=== PATIENT | male | born 1965 | race Caucasian/White ===

== ENCOUNTER 2021-12-29 13:00 | Oncology outpatient (recurring) (ONCR) | payer BC, SELFPAY ==
[2021-12-16 16:46] LABS: Erythrocyte Sedimentation Rate < 1 mm/hr (0-10)
[2021-12-16 16:50] LABS: Basophils # 0.1 10^3/uL (0.0-0.1); Basophils % 0.6 %; Eosinophils # 0.5 10^3/uL (0.0-0.8); Eosinophils % 4.5 %; Hematocrit 50.1 % (42.0-52.0); Hemoglobin 16.8 g/dL (11.7-16.6); Lymphocytes # 1.9 10^3/uL (0.8-4.8); Mean Corpuscular HGB Conc 33.5 g/dL (30.0-36.0); Mean Corpuscular Volume 86.5 fl (80-94); Mean Platelet Volume 9.9 fL (7.4-10.4); Monocytes # 1.3 10^3/uL (0.2-0.9); Monocytes % 12.8 %; Neutrophils # 6.23 10^3/uL (1.8-7.7); Neutrophils % 61.6 %; Nucleated Red Blood Cells % 0 %; Platelet Count 329 10^3/cmm (130-400); Red Blood Count 5.79 10^6/uL (4.1-5.3); Red Cell Distribution Width 12.9 % (12.1-15.1); White Blood Count 10.1 10^3/uL (4.0-10.0)
[2021-12-16 18:00] LABS: Alanine Aminotransferase 29 U/L (0-41); Albumin Level 4.5 g/dL (3.5-5.2); Alkaline Phosphatase 81 U/L (40-130); Anion Gap 15.2 (5-19); Aspartate Amino Transferase 24 U/L (0-40); Blood Urea Nitrogen 19 mg/dL (6-20); C Reactive Protein 5.6 mg/L (0.0-4.9); Calcium 9.3 mg/dL (8.5-10.5); Carbon Dioxide 26 mmol/L (22-29); Chloride 104 mmol/L (98-107); Ferritin 106 ng/mL (30-400); Globulin 2.5 g/dL (1.3-4.6); Glomerular Filtration Rate 69.5 mL/min (90-130); Glucose 72 mg/dL (65-115); Iron 98 ug/dL (59-158); Osmolality Calculated 293 mOsm/kg (285-295); Percent Saturation 30.8 % (20-50); Potassium 4.2 mmol/L (3.5-5.1); Sodium 141 mmol/L (136-145); Thyroid Stimulating Hormone 1.05 uIU/mL (0.27-4.20); Total Bilirubin 0.5 mg/dL (0.15-1.2); Total Iron Binding Capacity 318 mcg/dl; Unsaturated Iron Binding 220 ug/dL (112-347)
== END 2022-01-08 23:59 | disposition home or self-care (01) ==
PROVIDERS: Visit Provider Internal Medicine Medical Oncology
DX: E83.119 Hemochromatosis, unspecified (principal); R53.83 Other fatigue
CPT/HCPCS: 36415; 80053; 81256; 82728; 83540; 83550; 84443; 85025; 85651; 86140; 99195

== ENCOUNTER 2022-01-20 08:49 | Outpatient (CLI) | payer BC, SELFPAY ==
[2022-01-21 12:57] LABS: Lyme AB Screen <0.90 index
[2022-01-26 17:43] LABS: RMSF IGG NOT DETECTED; RMSF IGM NOT DETECTED
[2022-01-26 21:27] LABS: E. Chaffeensis AB IGG <1:64; E. Chaffeensis AB IGM <1:20
== END 2022-01-20 08:50 | disposition home or self-care (01) ==
LOC: LAB 08:52
PROVIDERS: Visit Provider Registered Nurse
DX: S30.862A Insect bite (nonvenomous) of penis, initial encounter (principal); W57.XXXA Bitten or stung by nonvenomous insect and other nonvenomous arthropods, initial encounter
CPT/HCPCS: 36415; 86618; 86666; 86757

== ENCOUNTER 2022-03-08 10:03 | Outpatient (CLI) | payer BC, SELFPAY ==
--- NOTE | 2022-03-08 10:38 | USCV_ITS ---
Alexis Mercado Age: 56 Gender: M : 1965 Exam Date: 03/08/2022 11:25 Ordering Phys: Elidia Horowitz Technologist: Eliazar Solis Exam Location: [facility] [place] Indication: HTN BP: 105 / 70 HR: 68 Rhythm: Sinus Technical Quality: Adequate MEASUREMENTS (Male / Female) Normal Values 2D ECHO LV Diastolic Diameter PLAX 3.8 cm 4.2 - 5.9 / 3.9 - 5.3 cm LV Systolic Diameter PLAX 2.3 cm IVS Diastolic Thickness 0.9 cm 0.6 - 1.0 / 0.6 - 0.9 cm IVS Systolic Thickness 0.9 cm LVPW Diastolic Thickness 1.0 cm 0.6 - 1.0 / 0.6 - 0.9 cm LVPW Systolic Thickness 1.1 cm LVOT Diameter 2.0 cm LV Ejection Fraction 2D Teich 70.4 % LV Ejection Fraction MOD 2C 60.9 % LV Ejection Fraction 2C AL 61.5 % LA Diameter 3.1 cm LA Width 3.4 cm LA Height 3.9 cm RA Width 2.6 cm RA Height 4.6 cm Aorta at Sinotubular Diameter 2.5 cm IVC Diameter 1.9 cm M-MODE Aortic Annulus Diameter 2.7 cm LA Ao Ratio MM 1.1 MV E Point Septal Separation 0.6 cm DOPPLER AV Peak Velocity 119.5 cm/s LVOT Peak Velocity 111.0 cm/s AV Area Cont Eq vti 3.1 cm squared AV Area Cont Eq pk 3.0 cm squared MV Peak Velocity 88.0 cm/s MV Area PHT 4.5 cm squared Mitral E to A Ratio 0.7 MV E' Velocity 32.5 cm/s Mitral E to MV E' Ratio 5.6 Mitral E to LV E' Lateral Ratio 4.7 Mitral E to LV E' Septal Ratio 6.9 TR Peak Velocity 142.3 cm/s TR Peak Gradient 8.1 mmHg TR Mean Velocity 106.3 cm/s TR Mean Gradient 4.8 mmHg TR Velocity Time Integral 29.2 cm Right Atrial Pressure 3.0 mmHg Pulmonary Artery Systolic Pressu 11.1 mmHg PV Peak Velocity 109.0 cm/s RV Acceleration Time 0.1 s RV Ejection Time 0.3 s RV AcT/ET 0.4 FINDINGS Left Ventricle Normal left ventricular size, systolic function and wall thickness, with no regional wall motion abnormalities. Left ventricular ejection fraction is estimated at 65 %. Normal diastolic function. Right Ventricle Normal right ventricular size and systolic function. Right ventricular systolic pressure 11.1 mmHg. Right Atrium Normal right atrial size. Left Atrium Normal left atrial size. Mitral Valve Structurally normal mitral valve. No mitral valve stenosis. Trace mitral valve regurgitation. Aortic Valve Structurally normal trileaflet aortic valve. No aortic valve stenosis. No aortic valve regurgitation. Tricuspid Valve Structurally normal tricuspid valve. No tricuspid valve stenosis. Trace tricuspid valve regurgitation. Pulmonic Valve Structurally normal pulmonic valve. No pulmonary valve stenosis. Trace pulmonary valve regurgitation. Pericardium No pericardial effusion. Aorta Normal size aortic root and proximal ascending aorta. IVC Normal IVC dimension with >50% respiratory change of the inferior vena cava. Normal IVC dimension with >50% respiratory change of the inferior vena cava. CONCLUSIONS 1. Normal left ventricular size, systolic function and wall thickness, with no regional wall motion abnormalities. Left ventricular ejection fraction is estimated at 65 %. Normal diastolic function. 2. No prior similar studies to compare. Vale Macias MD (Electronically Signed) Final Date: 11 March 2022 19:53 S
== END 2022-03-08 10:04 | disposition home or self-care (01) ==
PROVIDERS: PCP Registered Nurse; Visit Provider Registered Nurse
DX: I10 Essential (primary) hypertension (principal)
CPT/HCPCS: 93306

== ENCOUNTER 2022-04-13 11:28 | Outpatient (CLI) | payer BC, SELFPAY ==
[2022-04-13 12:29] LABS: Basophils # 0.1 10^3/uL (0.0-0.1); Basophils % 0.9 %; Eosinophils # 0.4 10^3/uL (0.0-0.8); Eosinophils % 4.4 %; Hematocrit 48.4 % (42.0-52.0); Hemoglobin 16.3 g/dL (11.7-16.6); Lymphocytes # 1.7 10^3/uL (0.8-4.8); Lymphocytes % 20.6 %; Mean Corpuscular HGB Conc 33.7 g/dL (30.0-36.0); Mean Corpuscular Volume 86.1 fl (80-94); Mean Platelet Volume 9.8 fL (7.4-10.4); Monocytes # 0.8 10^3/uL (0.2-0.9); Monocytes % 9.7 %; Neutrophils # 5.36 10^3/uL (1.8-7.7); Neutrophils % 63.3 %; Nucleated Red Blood Cells % 0 %; Platelet Count 336 10^3/cmm (130-400); Red Blood Count 5.62 10^6/uL (4.1-5.3); Red Cell Distribution Width 12.1 % (12.1-15.1); White Blood Count 8.5 10^3/uL (4.0-10.0)
[2022-04-13 12:53] LABS: Alanine Aminotransferase 41 U/L (0-41); Albumin Level 4.4 g/dL (3.5-5.2); Alkaline Phosphatase 72 U/L (40-130); Anion Gap 15.4 (5-19); Aspartate Amino Transferase 27 U/L (0-40); Blood Urea Nitrogen 16 mg/dL (6-20); Carbon Dioxide 27 mmol/L (22-29); Chloride 104 mmol/L (98-107); Ferritin 125 ng/mL (30-400); Globulin 2.8 g/dL (1.3-4.6); Glomerular Filtration Rate 87.6 mL/min (90-130); Glucose 92 mg/dL (65-115); Iron 126 ug/dL (59-158); Osmolality Calculated 295 mOsm/kg (285-295); Percent Saturation 39.1 % (20-50); Potassium 4.4 mmol/L (3.5-5.1); Sodium 142 mmol/L (136-145); Total Bilirubin 0.7 mg/dL (0.15-1.2); Total Iron Binding Capacity 322 mcg/dl; Total Protein 7.2 g/dL (6.6-8.7); Unsaturated Iron Binding 196 ug/dL (112-347)
== END 2022-04-13 11:29 | disposition home or self-care (01) ==
PROVIDERS: PCP Registered Nurse; Visit Provider Internal Medicine Medical Oncology
DX: E83.119 Hemochromatosis, unspecified (principal)
CPT/HCPCS: 36415; 80053; 82728; 83540; 83550; 85025

== ENCOUNTER 2022-05-27 07:59 | Oncology outpatient (recurring) (ONCR) | payer BC, SELFPAY ==
[2022-05-27 08:36] LABS: Basophils # 0.1 10^3/uL (0.0-0.1); Basophils % 0.9 %; Eosinophils # 0.4 10^3/uL (0.0-0.8); Eosinophils % 5.4 %; Hematocrit 44.1 % (42.0-52.0); Lymphocytes # 1.6 10^3/uL (0.8-4.8); Lymphocytes % 20.5 %; Mean Corpuscular Hemoglobin 28.4 pg (28.0-34.0); Mean Corpuscular Volume 83.4 fl (80-94); Mean Platelet Volume 9.7 fL (7.4-10.4); Monocytes # 0.8 10^3/uL (0.2-0.9); Monocytes % 10.6 %; Neutrophils # 4.85 10^3/uL (1.8-7.7); Nucleated Red Blood Cells % 0 %; Platelet Count 308 10^3/cmm (130-400); Red Blood Count 5.29 10^6/uL (4.1-5.3)
[2022-05-27 08:58] LABS: Alanine Aminotransferase 30 U/L (0-41); Albumin Level 4.4 g/dL (3.5-5.2); Alkaline Phosphatase 64 U/L (40-130); Anion Gap 12.8 (5-19); Aspartate Amino Transferase 28 U/L (0-40); Blood Urea Nitrogen 14 mg/dL (6-20); Calcium 9.4 mg/dL (8.5-10.5); Carbon Dioxide 27 mmol/L (22-29); Chloride 105 mmol/L (98-107); Ferritin 153 ng/mL (30-400); Globulin 2.1 g/dL (1.3-4.6); Glucose 108 mg/dL (65-115); Iron 108 ug/dL (59-158); Osmolality Calculated 293 mOsm/kg (285-295); Percent Saturation 34.8 % (20-50); Potassium 3.8 mmol/L (3.5-5.1); Sodium 141 mmol/L (136-145); Total Bilirubin 1.1 mg/dL (0.15-1.2); Total Iron Binding Capacity 310 mcg/dl; Total Protein 6.5 g/dL (6.6-8.7); Unsaturated Iron Binding 202 ug/dL (112-347)
[2022-05-27 10:15] VITALS: BP 136/74; PULSE 70; RESP 16; TEMP 36.7; O2SAT 98
== END 2022-06-08 23:59 | disposition home or self-care (01) ==
PROVIDERS: PCP Registered Nurse; Visit Provider Internal Medicine Medical Oncology
DX: E83.110 Hereditary hemochromatosis (principal); E83.119 Hemochromatosis, unspecified; R53.83 Other fatigue; M25.50 Pain in unspecified joint
CPT/HCPCS: 36415; 80053; 82728; 83540; 83550; 85025; 99195

== ENCOUNTER 2022-07-06 07:06 | Outpatient (CLI) | payer OTHER, SELFPAY ==
--- NOTE | 2022-07-06 07:21 | MR_ITS ---
WS: [id number] MRI BRAIN WITH AND WITHOUT CONTRAST HISTORY: SHORT TERM MEMORY LOSS COMPARISON: None available. TECHNIQUE: Multiplanar imaging performed through the brain with MultiHance 20 ml's IV. No acute infarcts are seen. Enciso-white matter differentiation is well preserved. No significant atrop hy or small vessel disease. No susceptibility artifacts or prior lacunar infarcts. Ventricles and extra-axial spaces are normal. Clivus and pituitary gland are normal. Visualized posterior fossa and brainstem are also normal. Postcontrast images are negative for masses or vascular malformations. Dural venous sinuses are normal. Paranasal sinuses: Very minimal mucoperiosteal thickening throughout the frontal and ethmoid sinuses. No air-fluid levels. Mastoid air cells: Normal. Calvarium and scalp: Normal. MR/MR head wo/w con [id number] IMPRESSION: 1. No acute infarct or mass. 2. No significant atrophy or volume loss. 3. Very minimal mucoperiosteal thickening in the frontal and ethmoid sinuses.
[2022-07-06] MEDS: gadobenate dimeglumine 20 mL vial IV (08:25)
== END 2022-07-06 07:07 | disposition home or self-care (01) ==
LOC: RAD 07:14
PROVIDERS: PCP Registered Nurse; Visit Provider Family Medicine
DX: R41.3 Other amnesia (principal)
CPT/HCPCS: 70553; A9577

== ENCOUNTER 2022-07-15 12:58 | Oncology outpatient (recurring) (ONCR) | payer OTHER, BC, SELFPAY ==
[2022-07-15 13:29] LABS: Basophils # 0.1 10^3/uL (0.0-0.1); Basophils % 0.7 %; Eosinophils # 0.5 10^3/uL (0.0-0.8); Eosinophils % 4.4 %; Hematocrit 43.1 % (42.0-52.0); Lymphocytes # 2.1 10^3/uL (0.8-4.8); Mean Corpuscular HGB Conc 34.8 g/dL (30.0-36.0); Mean Corpuscular Hemoglobin 29.4 pg (28.0-34.0); Mean Corpuscular Volume 84.3 fl (80-94); Monocytes # 1.3 10^3/uL (0.2-0.9); Monocytes % 10.3 %; Neutrophils % 66.9 %; Nucleated Red Blood Cells % 0 %; Platelet Count 309 10^3/cmm (130-400); Red Blood Count 5.11 10^6/uL (4.1-5.3); Red Cell Distribution Width 12.7 % (12.1-15.1); White Blood Count 12.1 10^3/uL (4.0-10.0)
[2022-07-15 14:00] LABS: Alanine Aminotransferase 29 U/L (0-41); Albumin Level 4.5 g/dL (3.5-5.2); Alkaline Phosphatase 80 U/L (40-130); Anion Gap 13.2 (5-19); Blood Urea Nitrogen 13 mg/dL (6-20); Carbon Dioxide 25 mmol/L (22-29); Chloride 108 mmol/L (98-107); Ferritin 145 ng/mL (30-400); Globulin 2.6 g/dL (1.3-4.6); Glucose 86 mg/dL (65-115); Iron 53 ug/dL (59-158); Osmolality Calculated 293 mOsm/kg (285-295); Percent Saturation 17.7 % (20-50); Potassium 4.2 mmol/L (3.5-5.1); Sodium 142 mmol/L (136-145); Total Bilirubin 0.6 mg/dL (0.15-1.2); Total Iron Binding Capacity 299 mcg/dl; Total Protein 7.1 g/dL (6.6-8.7); Unsaturated Iron Binding 246 ug/dL (112-347)
[2022-07-15 14:23] LABS: Aspartate Amino Transferase 24 U/L (0-40); Calcium 9.5 mg/dL (8.5-10.5)
== END 2022-08-08 23:59 | disposition home or self-care (01) ==
LOC: ONCMED 12:59
PROVIDERS: PCP Registered Nurse; Visit Provider Internal Medicine Medical Oncology
DX: E83.119 Hemochromatosis, unspecified (principal)
CPT/HCPCS: 36415; 80053; 82728; 83540; 83550; 85025

== ENCOUNTER 2022-10-14 10:46 | Oncology outpatient (recurring) (ONCR) | payer OTHER, SELFPAY ==
[2022-10-14 10:53] VITALS: BP 126/92; PULSE 86; RESP 18; TEMP 36.1; O2SAT 98
[2022-10-14 11:14] LABS: Basophils # 0.1 10^3/uL (0.0-0.1); Basophils % 0.7 %; Eosinophils # 0.5 10^3/uL (0.0-0.8); Eosinophils % 6.3 %; Hematocrit 48.7 % (42.0-52.0); Hemoglobin 16.7 g/dL (11.7-16.6); Lymphocytes # 1.6 10^3/uL (0.8-4.8); Lymphocytes % 18.9 %; Mean Corpuscular HGB Conc 34.3 g/dL (30.0-36.0); Mean Corpuscular Hemoglobin 29.1 pg (28.0-34.0); Mean Platelet Volume 9.6 fL (7.4-10.4); Monocytes % 11.9 %; Neutrophils # 5.07 10^3/uL (1.8-7.7); Neutrophils % 60.4 %; Nucleated Red Blood Cells % 0 %; Platelet Count 328 10^3/cmm (130-400); Red Blood Count 5.73 10^6/uL (4.1-5.3); Red Cell Distribution Width 12.9 % (12.1-15.1); White Blood Count 8.4 10^3/uL (4.0-10.0)
[2022-10-14 11:16] LABS: Erythrocyte Sedimentation Rate 2 mm/hr (0-10)
[2022-10-14 11:29] LABS: Alanine Aminotransferase 30 U/L (0-41); Albumin Level 4.5 g/dL (3.5-5.2); Alkaline Phosphatase 77 U/L (40-130); Anion Gap 15.3 (5-19); Aspartate Amino Transferase 23 U/L (0-40); Blood Urea Nitrogen 12 mg/dL (6-20); C Reactive Protein 3.3 mg/L (0.0-4.9); Calcium 9.2 mg/dL (8.5-10.5); Carbon Dioxide 24 mmol/L (22-29); Chloride 107 mmol/L (98-107); Ferritin 118 ng/mL (30-400); Globulin 2.5 g/dL (1.3-4.6); Glomerular Filtration Rate 77.3 mL/min (90-130); Glucose 82 mg/dL (65-115); Iron 110 ug/dL (59-158); Osmolality Calculated 293 mOsm/kg (285-295); Percent Saturation 35.7 % (20-50); Potassium 4.3 mmol/L (3.5-5.1); Sodium 142 mmol/L (136-145); Total Iron Binding Capacity 308 mcg/dl; Unsaturated Iron Binding 198 ug/dL (112-347)
== END 2022-11-08 23:59 | disposition home or self-care (01) ==
PROVIDERS: PCP Registered Nurse; Visit Provider Internal Medicine Medical Oncology
DX: E83.110 Hereditary hemochromatosis (principal); G47.30 Sleep apnea, unspecified; K57.90 Diverticulosis of intestine, part unspecified, without perforation or abscess without bleeding; M25.59 Pain in other specified joint; Z79.899 Other long term (current) drug therapy
CPT/HCPCS: 36415; 80053; 82728; 83540; 83550; 85025; 85651; 86140; 99214

== ENCOUNTER → 2022-12-24 10:13 | Outpatient (BNVA) | payer OTHER, SELFPAY | PROVIDERS: PCP Registered Nurse; Visit Provider Internal Medicine Cardiovascular Disease | DX: I10 Essential (primary) hypertension (principal); R00.0 Tachycardia, unspecified; M79.7 Fibromyalgia; F17.220 Nicotine dependence, chewing tobacco, uncomplicated | CPT/HCPCS: 99213 ==

== ENCOUNTER 2023-04-28 09:14 | Outpatient (CLI) | payer OTHER, SELFPAY | END 2023-04-28 09:15 | disposition home or self-care (01) | LOC: RT 09:14 | PROVIDERS: PCP Registered Nurse; Visit Provider Family Medicine | DX: R06.00 Dyspnea, unspecified (principal) | CPT/HCPCS: 94010; 94729 ==

== ENCOUNTER → 2023-04-29 10:00 | Outpatient (BNVA) | payer OTHER, SELFPAY | PROVIDERS: PCP Registered Nurse; Referring Provider Family Medicine; Visit Provider Specialist | DX: G56.03 Carpal tunnel syndrome, bilateral upper limbs (principal); R20.0 Anesthesia of skin; R20.2 Paresthesia of skin | CPT/HCPCS: 95913 ==

== ENCOUNTER 2023-06-27 10:25 | Oncology outpatient (recurring) (ONCR) | payer OTHER, SELFPAY ==
[2023-06-20 15:02] LABS: Basophils # 0.1 10^3/uL (0.0-0.1); Basophils % 0.8 %; Eosinophils # 0.6 10^3/uL (0.0-0.8); Eosinophils % 6.6 %; Lymphocytes # 1.8 10^3/uL (0.8-4.8); Lymphocytes % 21.3 %; Mean Corpuscular HGB Conc 34.3 g/dL (30-55); Mean Corpuscular Hemoglobin 29.4 pg (27-33); Mean Corpuscular Volume 85.6 fl (82-101); Mean Platelet Volume 9.6 fL (7.4-10.4); Monocytes # 0.7 10^3/uL (0.2-0.9); Monocytes % 8.6 %; Neutrophils # 5.36 10^3/uL (1.8-7.7); Neutrophils % 61.9 %; Nucleated Red Blood Cells % 0 %; Platelet Count 341 10^3/cmm (157-399); Red Blood Count 5.14 10^6/uL (3.85-5.65); Red Cell Distribution Width 12.2 % (12.1-15.1); White Blood Count 8.65 10^3/uL (3.29-11.43)
[2023-06-20 15:34] LABS: Alanine Aminotransferase 23 U/L (0-41); Albumin Level 4.3 g/dL (3.5-5.2); Alkaline Phosphatase 74 U/L (40-130); Anion Gap 14.1 (5-19); Aspartate Amino Transferase 22 U/L (0-40); Blood Urea Nitrogen 18 mg/dL (6-20); Calcium 9.2 mg/dL (8.5-10.5); Carbon Dioxide 25 mmol/L (22-29); Chloride 107 mmol/L (98-107); Ferritin 256 ng/mL (30-400); Globulin 2.6 g/dL (1.3-4.6); Glucose 109 mg/dL (65-115); Iron 92 ug/dL (59-158); Osmolality Calculated 296 mOsm/kg (285-295); Percent Saturation 32.6 % (20-50); Potassium 4.1 mmol/L (3.5-5.1); Sodium 142 mmol/L (136-145); Total Bilirubin 0.9 mg/dL (0.15-1.2); Total Iron Binding Capacity 282 mcg/dl; Total Protein 6.9 g/dL (6.6-8.7); Unsaturated Iron Binding 190 ug/dL (112-347)
[2023-06-20 16:12] VITALS: BP 122/91; PULSE 82; O2SAT 94
== END 2023-07-10 23:59 | disposition home or self-care (01) ==
PROVIDERS: Nurse Practitioner Family; PCP Registered Nurse; Visit Provider Internal Medicine Medical Oncology
DX: E83.119 Hemochromatosis, unspecified (principal); F17.290 Nicotine dependence, other tobacco product, uncomplicated; Z79.899 Other long term (current) drug therapy
CPT/HCPCS: 36415; 80053; 82728; 83540; 83550; 85025; 99195; 99214

== ENCOUNTER 2023-08-02 12:41 | Outpatient (CLI) | payer OTHER, SELFPAY ==
--- NOTE | 2023-08-02 12:47 | MR_ITS ---
WS: [id number] MRI LUMBAR SPINE WITH CONTRAST TECHNIQUE: Sagittal T1, T2 and STIR imaging. Axial T1 and T2 imaging. Post gadolinium imaging was obt ained. CLINICAL INFORMATION: MOTOR/SENSORY POLYNEUROPATHY COMPARISON: None. FINDINGS: Mild lumbar curve. No acute compression. No high-grade central canal stenosis. Incidental hemangioma L1 vertebral body. No abnormal gadolinium enhancement. No enhancement in the cauda equina nerve rootl ets. L1-L2: Spinal canal and foramen are patent. L2-L3: No significant disc bulging. Mild facet arthropathy. Spinal canal and foramen are patent. L3-L4: No significant disc bulging. Mild facet arthropathy. Small LEFT foraminal protrusion with mild LEFT foraminal narrowing. Spinal canal and RIGHT foramen are patent. L4-L5: Mild annular bulging. Tiny shallow central protrusion with slight narrowing of the subarticula r recess bilaterally LEFT greater than RIGHT. Mild facet arthropathy. Spinal canal and foramen are pa tent. Tiny annular fissure. L5-S1: Mild annular bulging. Tiny shallow central protrusion. Spinal canal and foramen are patent. Mi ld facet arthropathy. Visualized pelvic bony structures: Normal. Paravertebral soft tissues: Normal. IMPRESSION: Some images degraded by patient motion. 1. Mild lumbar curve. No acute compression. No high-grade central canal stenosis. 2. No abnormal gadolinium enhancement. 3. Mild annular bulging L4-5 with a tiny annular fissure. Slight impingement on the LEFT greater diaz n RIGHT subarticular recess. 4. Tiny LEFT foraminal protrusion L3-4 with slight encroachment on the exiting LEFT L3 nerve root. 5. Tiny shallow central protrusion L5-S1. Spinal canal is patent.
--- NOTE | 2023-08-02 12:47 | MR_ITS ---
WS: [email or web address] MR CERVICAL SPINE WO/W COMPARISON: None. HISTORY: MOTOR/SENSORY POLYNEUROPATHY TECHNIQUE: Sagittal T1, T2 and T2 inversion recovery; axial T2, T2 gradient and fiesta. Post gadolini um imaging with fat saturation technique. FINDINGS: Straightening of the normal cervical lordosis. Mild disc bulging worse at C3-C4 and C5-C6. No high-gr anupam central canal narrowing. No visualized demyelinating lesions within the cervical cord.No abnormal gadolinium enhancement. Cord signal is normal. No significant cord atrophy. C2-3: Mild facet arthropathy. Spinal canal and foramen are patent. C3-4: Mild disc bulge with osteophytic ridging. Mild LEFT greater than RIGHT bony foraminal narrowing . Uncovertebral joint hypertrophy. Spinal canal is patent. C4-5: Moderate facet arthropathy. Moderate LEFT and no significant RIGHT foraminal narrowing. Spinal canal is patent. C5-6: Mild disc osteophyte complex with endplate ridging. Mild bilateral bony foraminal narrowing. Mo derate facet arthropathy. C6-7: Moderate LEFT facet arthropathy. Mild LEFT and no significant RIGHT foraminal narrowing. Spinal canal is patent. C7-T1: Mild LEFT and no significant RIGHT foraminal narrowing. Spinal canal is patent. IMPRESSION: 1. Straightening of the normal cervical lordosis. No high-grade central canal narrowing. 2. No suspicious lesions in the cervical cord. No significant cord atrophy. Cord signal is normal. 3. No abnormal gadolinium enhancement. 4. Mild to moderate bony foraminal narrowing described above worse at LEFT C3-C4, LEFT C4-C5, bilate ral C5-C6 and LEFT C6-C7.
[2023-08-02] MEDS: gadobenate dimeglumine 20 mL vial IV (14:13)
== END 2023-08-02 12:42 | disposition home or self-care (01) ==
LOC: RAD 12:41
PROVIDERS: PCP Family Medicine; Visit Provider Family Medicine
DX: G62.9 Polyneuropathy, unspecified (principal); M51.26 Other intervertebral disc displacement, lumbar region; M51.27 Other intervertebral disc displacement, lumbosacral region; M48.02 Spinal stenosis, cervical region
CPT/HCPCS: 72156; 72158; A9577

== ENCOUNTER 2023-08-03 13:23 | Oncology outpatient (recurring) (ONCR) | payer OTHER, SELFPAY ==
[2023-08-03 13:38] LABS: Basophils # 0.1 10^3/uL (0.0-0.1); Basophils % 0.8 %; Eosinophils # 0.6 10^3/uL (0.0-0.8); Lymphocytes # 2.2 10^3/uL (0.8-4.8); Lymphocytes % 22.1 %; Mean Corpuscular HGB Conc 34.2 g/dL (30-55); Mean Corpuscular Hemoglobin 29.2 pg (27-33); Mean Corpuscular Volume 85.4 fl (82-101); Mean Platelet Volume 9.6 fL (7.4-10.4); Monocytes # 0.9 10^3/uL (0.2-0.9); Monocytes % 8.9 %; Neutrophils # 6.09 10^3/uL (1.8-7.7); Neutrophils % 61.4 %; Nucleated Red Blood Cells % 0 %; Platelet Count 361 10^3/cmm (157-399); Red Blood Count 5.27 10^6/uL (3.85-5.65); Red Cell Distribution Width 12.4 % (12.1-15.1); White Blood Count 9.92 10^3/uL (3.29-11.43)
== END 2023-08-09 23:59 | disposition home or self-care (01) ==
PROVIDERS: PCP Family Medicine; Visit Provider Internal Medicine Medical Oncology
DX: E83.119 Hemochromatosis, unspecified (principal); Z53.9 Procedure and treatment not carried out, unspecified reason
CPT/HCPCS: 36415; 85025

== ENCOUNTER 2023-09-27 11:46 | Oncology outpatient (recurring) (ONCR) | payer OTHER, SELFPAY ==
[2023-09-27 12:20] LABS: Basophils # 0.1 10^3/uL (0.0-0.1); Basophils % 0.9 %; Eosinophils # 0.6 10^3/uL (0.0-0.8); Eosinophils % 6.2 %; Hematocrit 43.9 % (37-53); Lymphocytes # 1.9 10^3/uL (0.8-4.8); Mean Corpuscular HGB Conc 34.4 g/dL (30-55); Mean Corpuscular Hemoglobin 28.9 pg (27-33); Mean Corpuscular Volume 84.1 fl (82-101); Mean Platelet Volume 9.5 fL (7.4-10.4); Monocytes # 0.8 10^3/uL (0.2-0.9); Monocytes % 9.1 %; Neutrophils % 61.7 %; Nucleated Red Blood Cells % 0 %; Platelet Count 376 10^3/cmm (157-399); Red Blood Count 5.22 10^6/uL (3.85-5.65); Red Cell Distribution Width 12.7 % (12.1-15.1); White Blood Count 9.06 10^3/uL (3.29-11.43)
[2023-09-27 12:39] LABS: Erythrocyte Sedimentation Rate 3 mm/hr (0-10)
[2023-09-27 12:40] LABS: Albumin Level 4.6 g/dL (3.5-5.2); Alkaline Phosphatase 90 U/L (40-130); Anion Gap 16.2 (5-19); Aspartate Amino Transferase 23 U/L (0-40); Blood Urea Nitrogen 11 mg/dL (6-20); C Reactive Protein 7.3 mg/L (0.0-4.9); Calcium 9.6 mg/dL (8.5-10.5); Carbon Dioxide 27 mmol/L (22-29); Chloride 103 mmol/L (98-107); Ferritin 148 ng/mL (30-400); Globulin 2.9 g/dL (1.3-4.6); Glomerular Filtration Rate 99.6 mL/min (90-130); Glucose 98 mg/dL (65-115); Iron 75 ug/dL (59-158); Osmolality Calculated 293 mOsm/kg (285-295); Percent Saturation 24.1 % (20-50); Potassium 4.2 mmol/L (3.5-5.1); Sodium 142 mmol/L (136-145); Total Bilirubin 0.6 mg/dL (0.15-1.2); Total Iron Binding Capacity 310 mcg/dl; Total Protein 7.5 g/dL (6.6-8.7); Unsaturated Iron Binding 235 ug/dL (112-347)
[2023-09-27 13:39] LABS: Alanine Aminotransferase 29 U/L (0-41)
[2023-09-28 08:22] LABS: PROTEIN, TOTAL 6.9 g/dL (6.1-8.1)
[2023-09-28 16:09] LABS: ALBUMIN 4.3 g/dL (3.8-4.8); ALPHA 1 GLOBULIN 0.2 g/dL (0.2-0.3); ALPHA 2 GLOBULIN 0.6 g/dL (0.5-0.9); BETA 1 GLOBULIN 0.4 g/dL (0.4-0.6); BETA 2 GLOBULIN 0.4 g/dL (0.2-0.5)
[2023-10-03 20:23] LABS: Immunofixation Serum Normal pattern.
== END 2023-10-09 23:59 | disposition home or self-care (01) ==
PROVIDERS: PCP Family Medicine; Visit Provider Internal Medicine Medical Oncology
DX: E83.119 Hemochromatosis, unspecified (principal)
CPT/HCPCS: 36415; 80053; 82728; 83540; 83550; 84155; 84165; 85025; 85651; 86140; 86334; 99195; 99214

== ENCOUNTER 2023-11-15 11:52 | Oncology outpatient (recurring) (ONCR) | payer OTHER, SELFPAY ==
[2023-11-15 12:32] LABS: Basophils # 0.1 10^3/uL (0.0-0.1); Basophils % 0.9 %; Eosinophils # 0.5 10^3/uL (0.0-0.8); Eosinophils % 5.5 %; Hematocrit 43.1 % (37-53); Lymphocytes # 2.3 10^3/uL (0.8-4.8); Lymphocytes % 26.2 %; Mean Corpuscular Hemoglobin 28.9 pg (27-33); Mean Corpuscular Volume 82.6 fl (82-101); Mean Platelet Volume 9.5 fL (7.4-10.4); Monocytes # 0.8 10^3/uL (0.2-0.9); Monocytes % 9.2 %; Neutrophils % 56.8 %; Nucleated Red Blood Cells % 0 %; Platelet Count 398 10^3/cmm (157-399); Red Blood Count 5.22 10^6/uL (3.85-5.65); Red Cell Distribution Width 12.7 % (12.1-15.1); White Blood Count 8.79 10^3/uL (3.29-11.43)
[2023-11-15 12:46] LABS: Alanine Aminotransferase 24 U/L (0-41); Albumin Level 4.6 g/dL (3.5-5.2); Alkaline Phosphatase 82 U/L (40-130); Anion Gap 18.8 (5-19); Aspartate Amino Transferase 21 U/L (0-40); Blood Urea Nitrogen 10 mg/dL (6-20); Calcium 8.7 mg/dL (8.5-10.5); Carbon Dioxide 21 mmol/L (22-29); Chloride 103 mmol/L (98-107); Ferritin 82 ng/mL (30-400); Globulin 2.7 g/dL (1.3-4.6); Glucose 107 mg/dL (65-115); Iron 98 ug/dL (59-158); Osmolality Calculated 288 mOsm/kg (285-295); Percent Saturation 32.6 % (20-50); Potassium 3.8 mmol/L (3.5-5.1); Sodium 139 mmol/L (136-145); Total Bilirubin 0.7 mg/dL (0.15-1.2); Total Iron Binding Capacity 300 mcg/dl; Total Protein 7.3 g/dL (6.6-8.7); Unsaturated Iron Binding 202 ug/dL (112-347)
== END 2023-12-10 23:59 | disposition home or self-care (01) ==
PROVIDERS: Nurse Practitioner Family; PCP Family Medicine; Visit Provider Internal Medicine Medical Oncology
DX: E83.119 Hemochromatosis, unspecified (principal)
CPT/HCPCS: 36415; 80053; 82728; 83540; 83550; 85025; 99195; 99214

== ENCOUNTER 2024-02-16 12:01 | Oncology outpatient (recurring) (ONCR) | payer OTHER, SELFPAY ==
[2024-02-16 12:34] LABS: Basophils # 0.1 10^3/uL (0.0-0.1); Basophils % 1.2 %; Eosinophils # 0.8 10^3/uL (0.0-0.8); Eosinophils % 8.8 %; Lymphocytes # 2.3 10^3/uL (0.8-4.8); Lymphocytes % 23.9 %; Mean Corpuscular HGB Conc 33.7 g/dL (30-55); Mean Corpuscular Hemoglobin 28.2 pg (27-33); Mean Corpuscular Volume 83.7 fl (82-101); Mean Platelet Volume 9.8 fL (7.4-10.4); Monocytes % 10.9 %; Neutrophils # 5.04 10^3/uL (1.8-7.7); Neutrophils % 53.6 %; Nucleated Red Blood Cells % 0 %; Platelet Count 388 10^3/cmm (157-399); Red Blood Count 5.14 10^6/uL (3.85-5.65); Red Cell Distribution Width 12.6 % (12.1-15.1)
[2024-02-16 12:53] LABS: Alanine Aminotransferase 35 U/L (0-41); Albumin Level 4.4 g/dL (3.5-5.2); Alkaline Phosphatase 103 U/L (40-130); Anion Gap 11.9 (5-19); Aspartate Amino Transferase 26 U/L (0-40); Blood Urea Nitrogen 13 mg/dL (6-20); Calcium 8.8 mg/dL (8.5-10.5); Carbon Dioxide 27 mmol/L (22-29); Chloride 103 mmol/L (98-107); Creatinine Clr Calc Pharmacy 102.4404; Ferritin 45 ng/mL (30-400); Glucose 92 mg/dL (65-115); Iron 130 ug/dL (59-158); Osmolality Calculated 286 mOsm/kg (285-295); Percent Saturation 41.5 % (20-50); Potassium 3.9 mmol/L (3.5-5.1); Sodium 138 mmol/L (136-145); Total Bilirubin 0.6 mg/dL (0.15-1.2); Total Iron Binding Capacity 313 mcg/dl; Total Protein 6.4 g/dL (6.6-8.7); Unsaturated Iron Binding 183 ug/dL (112-347)
[2024-02-16 13:37] LABS: Immunoglobulin IGA 111 mg/dL (70-400); Immunoglobulin IGG 1028 mg/dL (700-1600); Immunoglobulin IGM 59 mg/dL (40-230)
== END 2024-03-10 23:59 | disposition home or self-care (01) ==
PROVIDERS: Internal Medicine Medical Oncology; PCP Family Medicine; Visit Provider Internal Medicine Hematology & Oncology
DX: E83.119 Hemochromatosis, unspecified (principal); Z79.899 Other long term (current) drug therapy; J32.9 Chronic sinusitis, unspecified
CPT/HCPCS: 36415; 80053; 82728; 82784; 83540; 83550; 85025; 99213

== ENCOUNTER → 2024-02-20 15:48 | Outpatient (BNVA) | payer OTHER, SELFPAY | PROVIDERS: PCP Family Medicine; Visit Provider Internal Medicine Cardiovascular Disease | DX: R07.9 Chest pain, unspecified (principal); I10 Essential (primary) hypertension; R00.0 Tachycardia, unspecified; E83.119 Hemochromatosis, unspecified | CPT/HCPCS: 99214 ==

== ENCOUNTER 2024-04-09 10:12 | Oncology outpatient (recurring) (ONCR) | payer OTHER, SELFPAY ==
[2024-04-09 11:50] LABS: Basophils # 0.1 10^3/uL (0.0-0.1); Eosinophils # 0.9 10^3/uL (0.0-0.8); Eosinophils % 9.9 %; Hematocrit 42.8 % (37-53); Lymphocytes # 2.2 10^3/uL (0.8-4.8); Lymphocytes % 23.4 %; Mean Corpuscular HGB Conc 33.6 g/dL (30-55); Mean Corpuscular Hemoglobin 27.9 pg (27-33); Mean Corpuscular Volume 82.9 fl (82-101); Mean Platelet Volume 9.4 fL (7.4-10.4); Monocytes # 0.8 10^3/uL (0.2-0.9); Neutrophils # 5.21 10^3/uL (1.8-7.7); Neutrophils % 55.8 %; Nucleated Red Blood Cells % 0 %; Platelet Count 363 10^3/cmm (157-399); Red Blood Count 5.16 10^6/uL (3.85-5.65); Red Cell Distribution Width 12.8 % (12.1-15.1); White Blood Count 9.32 10^3/uL (3.29-11.43)
[2024-04-09 12:07] LABS: Alanine Aminotransferase 27 U/L (0-41); Albumin Level 4.4 g/dL (3.5-5.2); Alkaline Phosphatase 90 U/L (40-130); Anion Gap 14.1 (5-19); Aspartate Amino Transferase 24 U/L (0-40); Blood Urea Nitrogen 14 mg/dL (6-20); Calcium 9.4 mg/dL (8.5-10.5); Carbon Dioxide 26 mmol/L (22-29); Chloride 101 mmol/L (98-107); Creatinine Clr Calc Pharmacy 103.1956; Ferritin 87 ng/mL (30-400); Globulin 2.9 g/dL (1.3-4.6); Glucose 97 mg/dL (65-115); Osmolality Calculated 284 mOsm/kg (285-295); Potassium 4.1 mmol/L (3.5-5.1); Sodium 137 mmol/L (136-145); Total Bilirubin 0.6 mg/dL (0.15-1.2); Total Protein 7.3 g/dL (6.6-8.7)
[2024-04-09 13:10] LABS: Immunoglobulin IGA 99 mg/dL (70-400); Immunoglobulin IGG 1131 mg/dL (700-1600); Immunoglobulin IGM 55 mg/dL (40-230)
== END 2024-04-10 23:59 | disposition home or self-care (01) ==
PROVIDERS: Internal Medicine Medical Oncology; PCP Family Medicine; Visit Provider Internal Medicine Hematology & Oncology
DX: E83.119 Hemochromatosis, unspecified (principal); J32.9 Chronic sinusitis, unspecified; Z79.899 Other long term (current) drug therapy; I10 Essential (primary) hypertension; R00.0 Tachycardia, unspecified; R07.89 Other chest pain
CPT/HCPCS: 36415; 80053; 82728; 82784; 85025; 99195; 99214

== ENCOUNTER 2024-04-16 09:16 | Outpatient (CLI) | payer OTHER, SELFPAY ==
--- NOTE | 2024-04-16 09:15 | US_ITS ---
WS: [email or web address] Complete ABDOMINAL ULTRASOUND HISTORY: hemochromatosis COMPARISON: None available. Liver: 15.9 cm in length. Entire liver is not very well visualized. Coarse echotexture throughout. No mass. Portal Vein: Normal hepatopetal flow with monophasic waveform. Gallbladder: Prior cholecystectomy. CBD: 0.5 cm Pancreas: Nonvisualized. Right kidney: 9.8 cm x 6.7 x 6.3 cm. Cortex:1.1 cm. Normal size and echogenicity. No hydronephrosis or mass. Left kidney: 10.1 cm x 6.3 cm x 5.3 cm. Cortex: 1.1 cm. Normal size and echogenicity. No hydronephrosis or mass. Spleen: 11.1 cm. Normal size and echogenicity. Aorta and IVC: Unremarkable abdominal aorta and IVC. US/US abdomen complete* [id number] Impression: 1. Prior cholecystectomy. 2. Coarse echotexture throughout the liver. The entire liver is not well visua lized. Early changes of mild hepatocellular disease likely. 3. No renal obstruction. 4. Normal size spleen.
== END 2024-04-16 09:17 | disposition home or self-care (01) ==
LOC: RAD 09:17
PROVIDERS: PCP Family Medicine; Visit Provider Internal Medicine Medical Oncology
DX: E83.119 Hemochromatosis, unspecified (principal); R93.2 Abnormal findings on diagnostic imaging of liver and biliary tract; Z90.49 Acquired absence of other specified parts of digestive tract
CPT/HCPCS: 76700

== ENCOUNTER 2024-04-18 06:14 | Outpatient (CLI) | payer OTHER, SELFPAY ==
--- NOTE | 2024-04-18 06:30 | USCV_ITS ---
Alexis Mercado Age: 58 Gender: M : 1965 Exam Date: 04/18/2024 06:31 Ordering Phys: Laura Burton MD ([email or web address]) Technologist: [place] [facility] [place]: chest pain BP: 123 / 70 HR: 64 Rhythm: Sinus Technical Quality: Adequate MEASUREMENTS (Male / Female) Normal Values 2D ECHO LV Diastolic Diameter PLAX 4.2 cm 4.2 - 5.9 / 3.9 - 5.3 cm IVS Diastolic Thickness 1.2 cm 0.6 - 1.0 / 0.6 - 0.9 cm IVS Systolic Thickness 1.3 cm LVPW Diastolic Thickness 1.3 cm 0.6 - 1.0 / 0.6 - 0.9 cm LVPW Systolic Thickness 1.4 cm LVOT Diameter 2.0 cm LV Ejection Fraction 2D Teich 46.0 % LV Ejection Fraction MOD 4C 58.0 % LV Ejection Fraction MOD 2C 70.1 % LV Ejection Fraction 2C AL 71.2 % LA Diameter 2.9 cm RA Systolic Volume 4C AL 38.4 ml RA Systolic Volume 4C MOD 37.3 ml Aorta at Sinotubular Diameter 2.8 cm M-MODE LA Ao Ratio MM 1.3 AV Cusp Separation MM 2.1 cm DOPPLER AV Peak Velocity 141.0 cm/s LVOT Peak Velocity 104.0 cm/s AV Area Cont Eq vti 2.6 cm squared AV Area Cont Eq pk 2.4 cm squared MV Area PHT 3.8 cm squared Mitral E to A Ratio 0.9 TV Peak Velocity 178.7 cm/s TR Peak Velocity 211.0 cm/s TR Peak Gradient 17.8 mmHg TV Peak E Velocity 84.0 cm/s PV Peak Velocity 124.0 cm/s FINDINGS Left Ventricle Normal left ventricular size and systolic function, EF 58%.no regional wall motion abnormalities. Right Ventricle Normal right ventricular size and systolic function. Right Atrium Normal right atrial size. Left Atrium Normal left atrial size. Mitral Valve No gross abnormalities noted Aortic Valve No gross abnormalities noted Tricuspid Valve Trace tricuspid valve regurgitation. Pulmonic Valve Pulmonic valve not well visualized. Pericardium No pericardial effusion. Aorta Normal aortic annulus size. IVC Normal inferior vena cava. CONCLUSIONS Normal left ventricular size and systolic function, EF 58%.no regional wall motion abnormalities. Normal right ventricular size and systolic function. Trace tricuspid valve regurgitation. Estimated pulmonary artery peak systolic pressure, within normal limits There is no pericardial effusion. There are no intracardiac masses. Compared to the study from 03/08/2022, there may not be a significant change Dr Flor Whitten MD FAC (Electronically Signed) Final Date: 18 April 2024 08:47 S
== END 2024-04-18 06:15 | disposition home or self-care (01) ==
LOC: RAD 06:15
PROVIDERS: PCP Family Medicine; Visit Provider Internal Medicine Cardiovascular Disease
DX: R06.02 Shortness of breath (principal)
CPT/HCPCS: 93306

== ENCOUNTER 2024-06-05 08:00 | Outpatient (CLI) | payer OTHER, SELFPAY | END 2024-06-05 08:01 | disposition home or self-care (01) | PROVIDERS: PCP Family Medicine; Visit Provider Chiropractor | DX: J45.909 Unspecified asthma, uncomplicated (principal); R93.89 Abnormal findings on diagnostic imaging of other specified body structures | CPT/HCPCS: 94010 ==

== ENCOUNTER 2024-06-08 08:08 | Oncology outpatient (recurring) (ONCR) | payer OTHER, SELFPAY ==
[2024-06-08 08:32] LABS: Basophils # 0.1 10^3/uL (0.0-0.1); Basophils % 1.2 %; Eosinophils # 0.7 10^3/uL (0.0-0.8); Lymphocytes % 22.2 %; Mean Corpuscular Hemoglobin 27.8 pg (27-33); Mean Corpuscular Volume 81.7 fl (82-101); Mean Platelet Volume 9.4 fL (7.4-10.4); Monocytes % 11.3 %; Neutrophils # 5.06 10^3/uL (1.8-7.7); Neutrophils % 56.7 %; Nucleated Red Blood Cells % 0 %; Platelet Count 412 10^3/cmm (157-399); Red Blood Count 5.51 10^6/uL (3.85-5.65); Red Cell Distribution Width 12.4 % (12.1-15.1); White Blood Count 8.92 10^3/uL (3.29-11.43)
[2024-06-08 08:52] LABS: Ferritin 73 ng/mL (30-400)
== END 2024-06-08 23:59 | disposition home or self-care (01) ==
LOC: ONCMED 08:08
PROVIDERS: Internal Medicine Medical Oncology; PCP Family Medicine; Visit Provider Internal Medicine Hematology & Oncology
DX: E83.119 Hemochromatosis, unspecified (principal)
CPT/HCPCS: 36415; 82728; 85025

== ENCOUNTER 2024-07-16 08:13 | Oncology outpatient (recurring) (ONCR) | payer OTHER, SELFPAY ==
[2024-07-16 08:44] LABS: Basophils # 0.1 10^3/uL (0.0-0.1); Eosinophils % 9.8 %; Hematocrit 44.9 % (37-53); Lymphocytes # 1.8 10^3/uL (0.8-4.8); Lymphocytes % 18.2 %; Mean Corpuscular HGB Conc 34.3 g/dL (30-55); Mean Corpuscular Hemoglobin 28.5 pg (27-33); Mean Corpuscular Volume 83.1 fl (82-101); Mean Platelet Volume 9.5 fL (7.4-10.4); Monocytes # 0.9 10^3/uL (0.2-0.9); Monocytes % 9.1 %; Neutrophils # 5.97 10^3/uL (1.8-7.7); Neutrophils % 60.8 %; Nucleated Red Blood Cells % 0 %; Platelet Count 344 10^3/cmm (157-399); Red Cell Distribution Width 12.6 % (12.1-15.1); White Blood Count 9.82 10^3/uL (3.29-11.43)
[2024-07-16 09:07] LABS: Ferritin 38 ng/mL (30-400)
== END 2024-08-08 23:59 | disposition home or self-care (01) ==
LOC: ONCMED 08:13
PROVIDERS: Internal Medicine Medical Oncology; PCP Family Medicine; Visit Provider Internal Medicine Hematology & Oncology
DX: E83.119 Hemochromatosis, unspecified (principal)
CPT/HCPCS: 82728; 85025

== ENCOUNTER → 2024-08-21 08:22 | Outpatient (BNVA) | payer OTHER, SELFPAY | PROVIDERS: PCP Family Medicine; Visit Provider Internal Medicine | DX: Z53.9 Procedure and treatment not carried out, unspecified reason (principal) | CPT/HCPCS: 99999 ==

== ENCOUNTER 2024-08-23 08:04 | Oncology outpatient (recurring) (ONCR) | payer OTHER, SELFPAY ==
--- NOTE | 2024-08-21 06:39 | MR_ITS ---
WS: [id number] MRI HEAD WITH CONTRAST TECHNIQUE: Sagittal T1, T2 axial, T2 axial FLAIR, axial susceptibility weighted imaging, axial diffusion weighted images, and coronal T2 images were obtained. Pre and post-T1 axial and post T1 coronal images. ADC and FSPGR images. CLINICAL INFORMATION: VERTIGO COMPARISON: 2022 FINDINGS: No evidence of restricted diffusion to suggest acute ischemia. Ventricular system and basal cisterns are patent. Minimal small vessel changes. Mild parenchymal volume loss. Incidental benign retrocerebellar arachnoid cyst. Normal vascular flow voids at the skull base. No extra-axial fluid collections. No evidence of mass or mass effect. Mild mucosal thickening in the paranasal sinuses. Mastoid air cells are well aerated. Normal posterior nasopharynx. No hemosiderin on the susceptibility weighted images. Normal optic chiasm and pituitary infundibulum. Temporal lobes and hippocampal formations are normal in appearance. Benign venous angioma RIGHT frontal lobe. No abnormal gadolinium enhancement. MR/MR head wo/w con [id number] IMPRESSION: 1. No acute intracranial findings 2. Minimal small vessel changes. Mild parenchymal volume loss. 3. No abnormal intracranial enhancement. 4. No hemosiderin on the susceptibility weighted images.
[2024-08-21] MEDS: gadobenate dimeglumine 20 mL vial IV (07:15)
[2024-08-23 09:08] LABS: Alanine Aminotransferase 16 U/L (0-41); Albumin Level 4.3 g/dL (3.5-5.2); Alkaline Phosphatase 91 U/L (40-130); Anion Gap 15.2 (5-19); Aspartate Amino Transferase 19 U/L (0-40); Blood Urea Nitrogen 15 mg/dL (6-20); Calcium 9.3 mg/dL (8.5-10.5); Carbon Dioxide 24 mmol/L (22-29); Chloride 106 mmol/L (98-107); Ferritin 36 ng/mL (30-400); Globulin 2.8 g/dL (1.3-4.6); Glomerular Filtration Rate 86.7 mL/min (90-130); Glucose 100 mg/dL (65-115); Osmolality Calculated 293 mOsm/kg (285-295); Potassium 4.2 mmol/L (3.5-5.1); Sodium 141 mmol/L (136-145); Total Bilirubin 0.5 mg/dL (0.15-1.2); Total Protein 7.1 g/dL (6.6-8.7)
[2024-08-23 09:20] LABS: Basophils # 0.1 10^3/uL (0.0-0.1); Basophils % 1.1 %; Eosinophils # 0.8 10^3/uL (0.0-0.8); Eosinophils % 7.8 %; Hematocrit 45.1 % (37-53); Lymphocytes % 20.3 %; Mean Corpuscular HGB Conc 34.6 g/dL (30-55); Mean Corpuscular Hemoglobin 28.8 pg (27-33); Mean Corpuscular Volume 83.4 fl (82-101); Mean Platelet Volume 9.5 fL (7.4-10.4); Monocytes # 0.9 10^3/uL (0.2-0.9); Monocytes % 9.2 %; Neutrophils # 5.97 10^3/uL (1.8-7.7); Neutrophils % 60.8 %; Nucleated Red Blood Cells % 0 %; Platelet Count 343 10^3/cmm (157-399); Red Blood Count 5.41 10^6/uL (3.85-5.65); Red Cell Distribution Width 12.9 % (12.1-15.1); White Blood Count 9.84 10^3/uL (3.29-11.43)
== END 2024-09-08 23:59 | disposition home or self-care (01) ==
PROVIDERS: PCP Family Medicine; Visit Provider Internal Medicine Medical Oncology
DX: Z53.9 Procedure and treatment not carried out, unspecified reason; E83.119 Hemochromatosis, unspecified; R03.0 Elevated blood-pressure reading, without diagnosis of hypertension; I10 Essential (primary) hypertension; Z79.899 Other long term (current) drug therapy
CPT/HCPCS: 36415; 70553; 80053; 82728; 85025; 99214; A9577

== ENCOUNTER 2024-08-30 06:21 | Outpatient (CLI) | payer OTHER, SELFPAY ==
--- NOTE | 2024-08-30 06:27 | MR_ITS ---
WS: [id number] MRI BRAIN WITH HIGH-RESOLUTION IMAGING THROUGH THE INTERNAL AUDITORY CANALS WITHOUT AND WITH CONTRAST HISTORY: DIZZINESS AND GIDDINESS COMPARISON: 08/21/2024 TECHNIQUE: Multiplanar, multisequence imaging is performed through the brain. Additional 3 mm imaging performed in multiple planes through the internal auditory canal. Postcontrast imaging with 20 ml's of MultiHance. No acute intracranial hemorrhage, midline shift, edema or mass effect. Normal diffusion imaging. No hemorrhage. Mild symmetric cerebral and cerebellar volume loss. Normal hippocampal formations. No prior infarct. There is minimal small vessel disease. Ventricles and extra-axial spaces are normal. No inferior displacement of cerebellar tonsils. Clivus and pituitary gland are normal. Internal and external auditory canals: Unremarkable. Cranial nerves VII and VIII complexes: Unremarkable. No enhancement or mass. Cerebellopontine angles: Normal. Paranasal sinuses: Minimal mucoperiosteal thickening involving the frontal, ethmoid and maxillary sinuses. No air-fluid levels. Mastoid air cells: Normal. Calvarium and scalp: Normal. Visualized [place] of [place] and dural venous sinuses demonstrate no abnormality. MR/MR iac's wo/w con* [id number] IMPRESSION: 1. Normal internal/external auditory canals and cerebellopontine angles. No ma ss or signal abnormality. 2. No enhancing intracranial masses or prior infarcts. 3. Mild symmetric cerebral and cerebellar volume loss.
[2024-08-30] MEDS: gadobenate dimeglumine 20 mL vial IV (07:08)
== END 2024-08-30 06:22 | disposition home or self-care (01) ==
PROVIDERS: PCP Family Medicine; Visit Provider Specialist
DX: R42 Dizziness and giddiness (principal); R93.0 Abnormal findings on diagnostic imaging of skull and head, not elsewhere classified
CPT/HCPCS: 70553

== ENCOUNTER 2024-09-17 08:34 | Oncology outpatient (recurring) (ONCR) | payer OTHER, SELFPAY ==
[2024-09-17 08:51] LABS: Basophils # 0.1 10^3/uL (0.0-0.1); Basophils % 1.6 %; Eosinophils # 0.8 10^3/uL (0.0-0.8); Hematocrit 44.5 % (37-53); Lymphocytes # 1.9 10^3/uL (0.8-4.8); Mean Corpuscular HGB Conc 33.5 g/dL (30-55); Mean Corpuscular Hemoglobin 28.1 pg (27-33); Mean Platelet Volume 9.9 fL (7.4-10.4); Monocytes # 0.8 10^3/uL (0.2-0.9); Monocytes % 9.6 %; Neutrophils # 4.33 10^3/uL (1.8-7.7); Neutrophils % 53.9 %; Nucleated Red Blood Cells % 0 %; Platelet Count 347 10^3/cmm (157-399); Red Cell Distribution Width 12.8 % (12.1-15.1); White Blood Count 8.03 10^3/uL (3.29-11.43)
[2024-09-17 09:05] LABS: Ferritin 43 ng/mL (30-400)
== END 2024-10-08 23:59 | disposition home or self-care (01) ==
PROVIDERS: PCP Family Medicine; Visit Provider Internal Medicine Medical Oncology
DX: Z53.9 Procedure and treatment not carried out, unspecified reason; E83.119 Hemochromatosis, unspecified; R03.0 Elevated blood-pressure reading, without diagnosis of hypertension
CPT/HCPCS: 36415; 82728; 85025; 99214

== ENCOUNTER → 2024-11-12 07:49 | Outpatient (BNVA) | payer OTHER, SELFPAY | PROVIDERS: PCP Family Medicine; Visit Provider Student in an Organized Health Care Education/Training Program | DX: R12 Heartburn (principal); R19.4 Change in bowel habit; R19.7 Diarrhea, unspecified | CPT/HCPCS: 99204 ==

== ENCOUNTER 2024-11-21 07:59 | Outpatient (CLI) | payer OTHER, SELFPAY ==
--- NOTE | 2024-11-21 08:00 | MR_ITS ---
WS: [id number] MRI ABDOMEN WITH AND WITHOUT CONTRAST. COMPARISON: Ultrasound 04/16/2024 Multiplanar, multisequence imaging is performed with and without contrast. MultiHance 20 mL. Liver is normal size. There is moderate loss of signal on the T2 sequence through the liver consistent with hemachromatosis. There is also dropout of signal within the heart which is also noted with hereditary hemochromatosis. Signal within the spleen and liver remains appropriate. There also is superi mposed mild hepatic steatosis. Dropout of signal on the out of phase imaging. There is no enhancement or mass identified within the liver. No intrahepatic duct dilatation. Normal portal vein. Spleen is normal. Pancreas and adrenal glands are normal. Kidneys are normally enhancing. No mass or obstruction. There is no ascites or adenopathy. No pleural effusions at the lung bases. MR/MR abdomen wo/w con* [id number] IMPRESSION: 1. Mild diffuse loss of signal on the T2 sequences in the liver and heart, the se findings are noted with hereditary hemochromatosis. No loss of signal in the pancreas and the spleen is normal. 2. There is also hepatic steatosis. 3. No hepatic mass or abnormal enhancement.
[2024-11-21] MEDS: gadobenate dimeglumine 20 mL vial IV (08:56)
== END 2024-11-21 08:00 | disposition home or self-care (01) ==
LOC: RAD 08:00
PROVIDERS: PCP Family Medicine; Visit Provider Internal Medicine Medical Oncology
DX: E83.119 Hemochromatosis, unspecified (principal); E83.110 Hereditary hemochromatosis; K76.0 Fatty (change of) liver, not elsewhere classified
CPT/HCPCS: 74183

== ENCOUNTER 2024-11-22 07:50 | Day surgery (SDC) | payer OTHER, SELFPAY ==
[2024-11-22 08:20] VITALS: BP 132/95; PULSE 95; RESP 16; TEMP 36.1; O2SAT 98; BMI 30.2
--- NOTE | 2024-11-22 09:51 | ANES.PREANE2 ---
Pre-Anesthetic Assessment Height/Weight: Height 1.75 m Weight 92.986 kg Temp Pulse Resp BP Pulse Ox O2 Del Method 97 F L 95 16 132/95 98 Room Air 11/22/24 08:20 11/22/24 08:20 11/22/24 08:20 11/22/24 08:20 11/22/24 08:20 11/22/24 08:20 Preop Diagnosis: GERD, Change in bowel habits, diarrhea Operation Date: 11/22/24 09:45 Proposed Procedures p EGD EGD with Biopsy [id number] G0105 R12 R19.4 R19.7(Not Applicable) - Bernardo Washingotn MD s Colonoscopy(Not Applicable) - Bernardo Washington MD Was Beta Derek taken within 24 hours: Yes (yesterday morning, missed evening dose) Was Clonidine taken within 24 hours: N/A Last intake: Intake Last Liquid Date 11/21/24 Last Liquid Time 20:30 Last Solid Date 11/20/24 Last Solid Time 19:30 Social Alcohol (occasional) and No tobacco Exam alert, oriented x 3, clear to auscultation bilaterally and regular rate & rhythm Airway Cervical ROM: within normal limits Mallampati: Class II Dentition: full Pulmonary None reported CV/HEM Stable Angina and Hypertension None reported Hepatic None reported GI Gastroesophageal Reflux Disease Metabolic None reported Musc/skel None reported Neuropsych None reported Anesthetic Plan ASA status: 3 Anesthesia: MAC Risk of > 500 ml blood loss (7ml/kg in children): No Medications/Allergies Home Medications ?Medication ?Instructions ?Recorded ?Confirmed ?Last Taken ?Type carvedilol 6.25 mg tablet 6.25 mg PO BID 10/28/22 11/22/24 11/21/24 History gabapentin 100 mg capsule 300 mg PO TID 06/27/23 11/22/24 11/21/24 History sildenafil 100 mg tablet 100 mg PO PRN PRN Erectile 11/15/23 11/22/24 Unknown History Dysfunction testosterone 2 pump topical DAILY 11/15/23 11/22/24 11/21/24 History lisinopril 20 mg tablet 20 mg PO DAILY #90 tabs 03/14/24 11/22/24 11/21/24 Rx ondansetron HCl 8 mg tablet 8 mg PO Q8H 24 hours #90 tabs 08/23/24 11/22/24 Unknown Rx famotidine 40 mg tablet 40 mg PO DAILY 09/17/24 11/22/24 11/21/24 History allopurinol 100 mg tablet 100 mg PO ONCE 11/12/24 11/22/24 11/21/24 History aripiprazole 5 mg tablet (Abilify) 5 mg PO QDAY 11/12/24 11/22/24 11/21/24 History hydrocortisone 1 %-pramoxine 1 % 1 applic topical BID 11/12/24 11/22/24 Unknown History rectal foam (Proctofoam HC) ondansetron 8 mg disintegrating 8 mg PO Q8H PRN nausea and 11/12/24 11/22/24 Unknown Rx tablet vomiting #3 tabs pantoprazole 40 mg tablet,delayed 40 mg PO BID 11/12/24 11/22/24 11/21/24 History release sertraline 100 mg tablet (Zoloft) 100 mg PO DAILY 11/12/24 11/22/24 11/21/24 History diazepam 10 mg tablet (Valium) 10 mg PO BID #30 tabs 11/14/24 11/22/24 11/21/24 Rx diltiazem HCl 120 mg capsule,24 120 mg PO DAILY 11/21/24 11/22/24 11/21/24 History hr,extended release Allergies Allergy/AdvReac Type Severity Reaction Status Date / Time No Known Allergies Allergy Verified 11/19/24 09:26 Current Medications Generic Name Dose Route Start Last Admin Trade Name Freq PRN Reason Stop Dose Admin Sodium Chloride 1,000 mls @ 15 mls/hr 11/22/24 08:16 11/22/24 08:24 Sodium Chloride 0.9% IV 11/23/24 08:15 15 mls/hr .Q24H PRN Administration COLONOSCOPY FLUIDS PFSH Anesthesia Medical History (Updated 11/12/24 @ 08:58 by Bernardo Washington MD) History of sleep apnea Anxiety and depression Androgen deficiency Hypertension Fibromyalgia Chronic fatigue Hemochromatosis Surgical History (Updated 11/12/24 @ 07:57 by JANNET Quiroz) History of hernia repair Abdominal hernia repair 1966 and scrotal hernia repair 1979 History of cholecystectomy Family History Other Cancer Diabetes Psychiatric illness Social History Smoking and tobacco/nicotine status: never used tobacco/nicotine Quit status (tobacco/nicotine): has quit using Year quit tobacco: QUIT SMOKELESS TOBACCO Alcohol intake: current Alcohol intake frequency: 0-2 Drinks per Day Data Anesthesia Cardiac Studies: Echocardiogram 04/18/24 Cardiac Event Monitor 08/21/24
--- NOTE | 2024-11-22 09:55 | W.PM.OPSUD ---
Surgery/Procedure H&P Update DATE OF PROCEDURE: November 22, 2024 DATE H&P PERFORMED: 11/12/24 H&P UPDATE INFORMATION: I have reviewed H&P completed within last 30 days, I have examined patient prior to procedure and No changes to prior documentation PLANNED PROCEDURE: Operation Date: 11/22/24 09:45 Proposed Procedures p EGD EGD with Biopsy [id number] G0105 R12 R19.4 R19.7(Not Applicable) - Bernardo Washington MD s Colonoscopy(Not Applicable) - Bernardo Washington MD
--- NOTE | 2024-11-22 10:22 | PC.NURSE ---
Cecum time 1015
[2024-11-22 10:24] VITALS: BP 125/90; PULSE 89; RESP 18; TEMP 36.1; O2SAT 98
[2024-11-22 10:30] VITALS: BP 122/94; PULSE 85; RESP 18; O2SAT 93
[2024-11-22 10:40] VITALS: BP 120/86; PULSE 85; RESP 18; O2SAT 94
[2024-11-22 10:45] VITALS: BP 130/96; PULSE 81; RESP 18; O2SAT 93
--- NOTE | 2024-11-22 11:07 | ANE.PACU2 ---
Inpatient post-anesthesia follow up: Airway intact: Yes Vital signs: Temperature 97.0 F Pulse Rate 81 Respiratory Rate 18 Blood Pressure 130/96 Pulse Oximetry 93 Oxygen Delivery Me thod Room Air Oxygen Flow Rate Fraction of Inspir ed Oxygen Hydration adequate: Yes Nausea and vomiting: No Pain level: 1 Mental status: Baseline
== END 2024-11-22 11:07 | disposition home or self-care (01) ==
PROVIDERS: PCP Family Medicine; Visit Provider Student in an Organized Health Care Education/Training Program
PROC: 0DJ08ZZ Inspection of Upper Intestinal Tract, Via Natural or Artificial Opening Endoscopic (ICD-10-PCS; principal; 2024-11-22 09:45)
PROC: 0DJD8ZZ Inspection of Lower Intestinal Tract, Via Natural or Artificial Opening Endoscopic (ICD-10-PCS; CPT 45378; 2024-11-22 09:45)
DX: R19.4 Change in bowel habit (principal); R19.7 Diarrhea, unspecified; K57.30 Diverticulosis of large intestine without perforation or abscess without bleeding; K64.4 Residual hemorrhoidal skin tags; R12 Heartburn; K29.70 Gastritis, unspecified, without bleeding; Z87.891 Personal history of nicotine dependence; I10 Essential (primary) hypertension; G47.30 Sleep apnea, unspecified; F41.8 Other specified anxiety disorders; M79.7 Fibromyalgia; K21.9 Gastro-esophageal reflux disease without esophagitis; I20.9 Angina pectoris, unspecified
CPT/HCPCS: 45378; 88305; J2704; J3490; J7030

== ENCOUNTER 2024-11-26 09:00 | Oncology outpatient (recurring) (ONCR) | payer OTHER, SELFPAY ==
[2024-11-26 09:30] LABS: Hematocrit 43.8 % (37-53); Hemoglobin 14.90 g/dL (11.27-16.99); Mean Corpuscular HGB Conc 34.0 g/dL (30-55); Mean Corpuscular Hemoglobin 28.6 pg (27-33); Mean Corpuscular Volume 84.1 fl (82-101); Nucleated Red Blood Cells % 0 %; Platelet Count 323 10^3/cmm (157-399); Red Blood Count 5.21 10^6/uL (3.85-5.65); White Blood Count 9.59 10^3/uL (3.29-11.43)
[2024-11-26 10:00] LABS: Ferritin 71 ng/mL (30-400)
== END 2024-12-09 23:59 | disposition home or self-care (01) ==
PROVIDERS: PCP Family Medicine; Visit Provider Internal Medicine Medical Oncology
DX: E83.119 Hemochromatosis, unspecified; R03.0 Elevated blood-pressure reading, without diagnosis of hypertension; Z87.891 Personal history of nicotine dependence; Z53.9 Procedure and treatment not carried out, unspecified reason
CPT/HCPCS: 36415; 82728; 85025; 99195; 99214

== ENCOUNTER → 2024-12-03 07:58 | Outpatient (BNVA) | payer OTHER, SELFPAY | PROVIDERS: PCP Family Medicine; Visit Provider Student in an Organized Health Care Education/Training Program | DX: Z09 Encounter for follow-up examination after completed treatment for conditions other than malignant neoplasm (principal) | CPT/HCPCS: 99213 ==

== ENCOUNTER → 2025-03-20 07:37 | Outpatient (BNVA) | payer OTHER, SELFPAY | PROVIDERS: PCP Family Medicine; Visit Provider Podiatrist Foot & Ankle Surgery | DX: R26.81 Unsteadiness on feet (principal); M89.8X7 Other specified disorders of bone, ankle and foot; M79.2 Neuralgia and neuritis, unspecified; M79.671 Pain in right foot; M79.672 Pain in left foot | CPT/HCPCS: 73630; 99204 ==

== ENCOUNTER 2025-03-25 11:42 | Oncology outpatient (recurring) (ONCR) | payer OTHER, SELFPAY ==
[2025-03-25 12:17] LABS: Hematocrit 42.5 % (37-53); Hemoglobin 14.70 g/dL (11.27-16.99); Mean Corpuscular HGB Conc 34.6 g/dL (30-55); Mean Corpuscular Hemoglobin 28.1 pg (27-33); Mean Corpuscular Volume 81.1 fl (82-101); Nucleated Red Blood Cells % 0 %; Platelet Count 332 10^3/cmm (157-399); Red Blood Count 5.24 10^6/uL (3.85-5.65); White Blood Count 10.13 10^3/uL (3.29-11.43)
[2025-03-25 12:55] LABS: Ferritin 36 ng/mL (30-400)
== END 2025-04-10 23:59 | disposition home or self-care (01) ==
PROVIDERS: PCP Family Medicine; Visit Provider Internal Medicine Medical Oncology
DX: Z53.9 Procedure and treatment not carried out, unspecified reason; E83.119 Hemochromatosis, unspecified; R03.0 Elevated blood-pressure reading, without diagnosis of hypertension; Z87.891 Personal history of nicotine dependence
CPT/HCPCS: 82728; 85025; 99212